=== PATIENT | female | born 1960 | race Caucasian/White ===

== ENCOUNTER 2017-08-25 14:18 | Emergency (ER) | payer OTHER ==
[~2017-08-25] VITALS: Ht 162.6 cm; Wt 84.4 kg
--- OUTSIDE RECORDS SUMMARY | 2017-08-25 14:20 | XMS REPORT | Clinical Summary ---
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 Disp. Refills Start End Date Status Date pyridostigmine (MESTINON) Take 60 mg by mouth every Active 60 mg tabletIndications: 3 (three) hours. Every 3 Myasthenia Gravis hrs po while awake. predniSONE (DELTASONE) 10 Take 10 mg by mouth Active MG tabletIndications: daily. Myasthenia Gravis, Systemic Lupus Erythematosus enoxaparin (LOVENOX) 30 Inject 60 mg Active mg/0.3 mL subcutaneously 2 (two) injectionIndications: times daily. Pulmonary Thromboembolism Prevention, Myasthenia, A-fib., Thromboembolic Pulmonary Hyperstension azaTHIOprine (IMURAN) 50 Take 50 mg by mouth 2 Active mg tabletIndications: (two) times daily. Systemic Lupus Erythematosus aspirin 81 MG EC Take 81 mg by mouth Active tabletIndications: daily. Osteoarthritis, a fib,platelet mutation famotidine (PEPCID) 20 MG Take 20 mg by mouth 2 Active tablet (two) times daily. empagliflozin (JARDIANCE) Take 10 mg by mouth 11/05/19 Active 10 mg Tab daily. 15 Active Problems Patient Care Coordination Note Weekly maintenance plasmapheresis for MG via LUE AVG. Problem Noted Date PE (pulmonary thromboembolism) ([facility]) 12/08/2000 GERD (gastroesophageal reflux disease) 07/10/1999 Myasthenia gravis ([facility]) Diabetes mellitus (HCC) Other forms of systemic lupus erythematosus (HCC) Antiphospholipid antibody syndrome (HCC) AF (paroxysmal atrial fibrillation) ([facility]) Myasthenia gravis without (acute) exacerbation (HCC) Myasthenia gravis without exacerbation ([facility]) MG (myasthenia gravis) ([facility]) Encounters Date Type Specialty Care Team Description 08/22/2017 [facility] Nephrology Epifanio Lombardi MD Arrived Encounter 08/15/2017 [facility] Nephrology Epifanio Lombardi MD Left without seen Encounter 08/11/2017 [facility] Nephrology Epifanio Lombardi MD Left without seen Encounter 08/08/2017 [facility] Nephrology Epifanio Lombardi MD Left without seen Encounter 08/01/2017 [facility] Nephrology Epifanio Lombardi MD Left without seen Encounter 07/27/2017 [facility] Nephrology Jeferson Carlton, Left without seen Encounter 07/21/2017 [facility] Nephrology Jeferson Carlton, Left without seen Encounter 07/17/2017 [facility] Nephrology Jeferson Carlton, Left without seen Encounter 07/10/2017 [facility] Nephrology Jeferson Carlton, Encounter 07/04/2017 [facility] Nephrology Jeferson Carlton, Left without seen Encounter 06/27/2017 [facility] Nephrology Jeferson Carlton, Left without seen Encounter 06/20/2017 [facility] Nephrology Jeferson Carlton, Encounter 06/13/2017 Hospital Nephrology Jeferson Carlton, Encounter 06/09/2017 Hospital Nephrology Jeferson Carlton, Left without seen Encounter 06/06/2017 Hospital Nephrology Jeferson Carlton, Encounter 05/30/2017 [facility] Nephrology Jeferson Carlton, Left without seen Encounter 05/23/2017 [facility] Nephrology Jeferson Carlton, Encounter 05/16/2017 [facility] Nephrology Jeferson Cartlon, Encounter 05/12/2017 [facility] Nephrology Jeferson Carlton, Left without seen Encounter 05/09/2017 [facility] Nephrology Jeferson Carlton, Left without seen Encounter 05/02/2017 [facility] Nephrology Jeferson Carlton, Left without seen Encounter 04/25/2017 [facility] Nephrology Jeferson Carlton, Encounter MD 04/18/2017 [facility] Nephrology Jeferson Carlton, Encounter 04/14/2017 [facility] Nephrology Jeferson Carlton, Left without seen Encounter 04/11/2017 [facility] Nephrology Jeferson Carlton, Encounter MD 04/04/2017 [facility] Nephrology Epifanio Lombardi MD Left without seen Encounter 03/28/2017 [facility] Nephrology Epifanio Lombardi MD Left without seen Encounter 03/21/2017 [facility] Nephrology Epifanio Lombardi MD Left without seen Encounter 03/14/2017 [facility] Nephrology Epifanio Lombardi MD Left without seen Encounter 03/09/2017 [facility] Nephrology Epifanio Lombardi MD Encounter 03/03/2017 [facility] Nephrology Jeferson Carlton, Left without seen Encounter 03/02/2017 Outside Orders Central Scheduling Jeferson Carlton MD 02/28/2017 [facility] Nephrology Epifanio Lombardi MD Encounter 02/21/2017 [facility] Nephrology Epifanio Lombardi MD Left without seen Encounter 02/14/2017 [facility] Nephrology Jeferson Carlton, Left without seen Encounter 02/07/2017 [facility] Nephrology Epifanio Lombardi MD Left without seen Encounter 01/31/2017 [facility] Nephrology Epifanio Lombardi MD Left without seen Encounter 01/24/2017 [facility] Nephrology Epifanio Lombardi MD Left without seen Encounter 01/17/2017 [facility] Nephrology Epifanio Lombardi MD Encounter 01/13/2017 [facility] Nephrology Jacy Leyva, Left without seen Encounter 01/09/2017 [facility] Nephrology Jacy Leyva, Encounter 01/03/2017 [facility] Nephrology Jeferson Carlton, Left without seen Encounter 12/27/2016 [facility] Nephrology Jeferson Carlton, Encounter 12/20/2016 [facility] Nephrology Jeferson Carlton, Left without seen Encounter 12/16/2016 [facility] Nephrology Jeferson Carlton, Encounter 12/09/2016 Hospital Nephrology Jeferson Carlton, Encounter 12/06/2016 Hospital Nephrology Jeferson Carlton, Left without seen Encounter 11/29/2016 Hospital Nephrology Jeferson Carlton, Encounter 11/22/2016 [facility] Nephrology Jeferson Carlton, Left without seen Encounter 11/15/2016 [facility] Nephrology Jeferson Carlton, Myasthenia gravis (HCC) Encounter 11/08/2016 [facility] Nephrology Jeferson Carlton, Systemic lupus Encounter erythematosus, unspecified SLE type, unspecified organ involvement status (HCC) 11/01/2016 Hospital Nephrology Jeferson Carlton, Myasthenia gravis (HCC) Encounter 10/25/2016 [facility] Nephrology Jeferson Carlton, Other forms of systemic Encounter lupus erythematosus (HCC) 10/18/2016 [facility] Nephrology Jeferson Carlton, Myasthenia gravis (HCC) Encounter 10/11/2016 Hospital Nephrology Jeferson Carlton, Myasthenia gravis (HCC) Encounter 10/04/2016 Hospital Nephrology Jeferson Carlton, Myasthenia (HCC ) Encounter 09/27/2016 Hospital Nephrology Jeferson Carlton, Myasthenia gravis (HCC) Encounter 09/20/2016 Hospital Nephrology Jeferson Carlton, Myasthenia gravis (HCC) Encounter 09/13/2016 [facility] Nephrology Jeferson Carlton, Lupus ( systemic lupus Encounter erythematosus) (HCC) 09/06/2016 Hospital Nephrology Jeferson Carlton, Myasthenia gravis (HCC) Encounter 08/30/2016 Hospital Nephrology Jeferson Carlton, Lupus ( systemic lupus Encounter erythematosus) ([facility]) after 08/24/2016 Immunizations Name Dates Previously Given Next Due Influenza TIV (IM) 04/10/2013 Influenza Three-TIV PF 5+ 04/25/2017 YR Social History Tobacco Use Types Packs/Day Years Used Date Never Smoker Sex Assigned at Date Recorded Not on file Last Filed Vital Signs Vital Sign Reading Time Taken Blood Pressure 130/60 08/22/2017 12:32 PM [employer] Pulse 65 08/22/2017 12:45 PM [employer] Temperature 36.7 C (98.1 F) 08/22/2017 10:32 AM [employer] Respiratory Rate 19 08/22/2017 10:32 AM [employer] Oxygen Saturation 97% 12/16/2016 3:25 PM CDT Inhaled Oxygen - - Concentration Weight 90.7 kg (200 lb) 07/27/2017 1:30 PM [employer] Height - - Body Mass Index 34.33 07/27/2017 1:30 PM [employer] Plan of Treatment Date Type Specialty Care Team Description 08/29/2017 Appointment Nephrology Epifanio Lombardi MD One [address] [address] [phone] 09/05/2017 Appointment NephEpifanio Perdue MD [address] [address] 09/08/2017 Appointment NephEpifanio Perdue MD One [address] [address] 09/12/2017 Appointment Nephrology Epifanio Lombardi MD One [address] [address] 09/19/2017 Appointment NephEpifanio Perdue MD [address] [address] 09/26/2017 Appointment NephEpifanio Perdue MD One [address] [address] 10/03/2017 Appointment Nephrology Epifanio Lombardi MD One [address] [address] [phone] Results * Plasma Exchange (08/22/2017 12:49 PM) Only the most recent of 59 results within the time period is included. Narrative Reyes Escudero RN 08/22/2017 12:49 PM Pt has plasma exchange with 3 Liters 5% Albumin via left upper arm AVG. Tolerated treatment well, no untoward s/sx of reaction noted. Seen by Dr Escamilla and Dr Richter at bedside. Discharged to home , self care. Lab Results Component Value Date WBC 6.5 07/17/2017 HGB 14.8 07/17/2017 HCT 39.3 07/17/2017 MCV 89.7 07/17/2017 PLT 202 07/17/2017 Lab Results Component Value Date GLUCOSE 362 (H) 01/19/2016 CALCIUM 9.7 01/19/2016 NA 140 02/28/2017 K 3.4 (L) 02/28/2017 CO2 16 (L) 02/28/2017 CL 110 (H) 02/28/2017 BUN 19 01/19/2016 CREATININE 0.88 01/19/2016 * Calcium, Ionized (08/22/2017 12:20 PM) Only the most recent of 60 results within the time period is included. Component Value Ref Range Calcium, Ion 1.23 1.12 - 1.27 mmol/L pH, Blood 7.30 Specimen Performing Laboratory Blood - Arm, [address] [address] Narrative Range 1.12 - 1.27 * CBC (Hemogram only) (08/22/2017 10:40 AM) Only the most recent of 21 results within the time period is included. Component Value Ref Range WBC 7.7 3.5 - 10.5 K/ L RBC 4.25 3.93 - 5.22 M/ L Hemoglobin 14.5 11.2 - 15.7 GM/DL Hematocrit 39.0 34.1 - 44.9 % MCV 91.8 79.4 - 94.8 fL MCH 34.1 (H) 25.6 - 32.2 pg MCHC 37.2 (H) 32.2 - 35.5 GM/DL RDW 12.7 11.7 - 14.4 % Platelets 226 150 - 450 K/CU MM MPV 11.7 9.4 - 12.3 fL nRBC 0 0 - 0 /100 WBC Specimen Performing Laboratory Blood - Arm, [address] [address] * Immunoglobulin A (IgA) (07/17/2017 1:56 PM) Only the most recent of 11 results within the time period is included. Component Value Ref Range IgA 109 63 - 484 mg/dL Specimen Performing Laboratory Blood [address] [address] * Immunoglobulin M (IgM) (07/17/2017 1:56 PM) Only the most recent of 12 results within the time period is included. Component Value Ref Range IgM 40 22 - 293 mg/dL Specimen Performing Laboratory Blood [address] [address] * Immunoglobulin G (IgG) (07/17/2017 1:56 PM) Only the most recent of 11 results within the time period is included. Component Value Ref Range IgG 688 540 - 1822 mg/dL Specimen Performing Laboratory Blood [address] [address] * Hemoglobin electrophoresis (06/27/2017 1:36 PM) Component Value Ref Range Hgb A Quant 97.7 % Hgb A2 Quant 2.3 1.5 - 3.0 % Hgb F Quant 0.0 <=2.0 % Hgb Other 0 Hgb C Quant 0.0 <=0.1 % Hgb S Quant 0.0 <=0.1 % Hgb E Quant 0 Specimen Performing Laboratory Blood * Electrolytes (02/28/2017 3:26 PM) Component Value Ref Range Sodium 140 136 - 145 meq/L Potassium 3.4 (L)Comment: Specimen slightly hemolyzed 3.5 - 5.1 meq/L Chloride 110 (H) 98 - 107 meq/L CO2 16 (L) 22 - 29 meq/L Specimen Performing Laboratory Blood - Arm, [address] [address] * Type and screen, automated (12/09/2016 1:22 PM) Component Value Ref Range ABO/RH AUTOMATED (BEAKER) O POSITIVE Ab Scrn NEGATIVE Specimen Performing Laboratory Blood - Arm, [address] [address] * Fibrinogen (12/09/2016 1:22 PM) Component Value Ref Range Fibrinogen 220 (L) 225 - 434 mg/dl Specimen Performing Laboratory Blood - Arm, [address] [address] after 08/24/2016
--- OUTSIDE RECORDS SUMMARY | 2017-08-25 14:20 | XMS REPORT | Clinical Summary ---
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 Disp. Refills Start End Date Status Date FREESTYLE LITE STRIPS 04/25/20 Active strip test strips 16 diclofenac (VOLTAREN) 1 % 2 05/26/20 Active gel 16 DUREZOL 0.05 % drops 0 06/10/20 Active 16 JARDIANCE 10 mg tablet 06/21/20 Active 16 LOVENOX 60 mg/0.6 mL 05/30/20 Active syringe 16 famotidine (PEPCID) 20 MG 06/17/20 Active tablet 16 lidocaine (LIDODERM) 5 % 3 06/30/20 Active 16 predniSONE (DELTASONE) 10 06/17/20 Active mg tablet 16 predniSONE (DELTASONE) 5 06/17/20 Active mg tablet 16 MESTINON 60 mg tablet 06/17/20 Active 16 sulfamethoxazole-trimetho Take 1 tablet by mouth 2 0 04/29/20 Active prim (BACTRIM DS) 800-160 (two) times a day. for 10 16 mg per tablet days Active Problems Problem Noted Date Uncontrolled type 2 diabetes mellitus 11/02/2015 Encounters Date Type Specialty Care Team Description 06/26/2017 [facility] Radiology SueKiara Ralph DO Chronic pulmonary Encounter hypertension 06/23/2017 Transcribe Access Romie Kapoor PA Chronic pulmonary Orders hypertension (Primary Dx) after 08/24/2016 Immunizations Name Dates Previously Given Next Due Influenza Trivalent 04/10/2013 Social History Tobacco Use Types Packs/Day Years Used Date Never Assessed Sex Assigned at Date Recorded Not on file Last Filed Vital Signs Not on file Plan of Treatment Health Maintenance Due Date Last Done Comments FOOT EXAM 1970 OPHTHALMOLOGY EXAM 1970 URINE MICROALBUMIN 1970 PAP SMEAR 1981 COLONOSCOPY 2010 MAMMOGRAM 2010 INFLUENZA VACCINE 02/07/2017 04/10/2013 Results * CT Chest W Contrast (06/26/2017 5:28 PM) Specimen Performing Laboratory [address] [address] Narrative EXAMINATION:CT CHEST W CONTRAST CLINICAL HISTORY: 56 years Female I27.20 Pulmonary hypertensionunspecified, I27.2 TECHNIQUE: Multiple axial images of the chest were obtained following intravenous administration of iodinated contrast. Sagittal and coronal computerized reformatted images were also obtained. CT imaging was performed with iterative reconstruction techniques and/or automated exposure control to reduce radiation dose. COMPARISON: April 26, 2002 FINDINGS: Postop sternotomy changes are present. The heart size appears within normal limits. There is no pleural fluid identified. Views of the upper abdomen which were obtained demonstrate benign-appearing calcifications along the anterior liver margin and related to splenic vessels. There is an approximately 2.8 cm density adjacent to the lateral margin of the upper pole of the left kidney whether this arises from the kidney or spleen is uncertain. It appears virtually isodense with the spleen and likely represents accessory splenic tissue although a renal mass is not excluded. This does not appear significantly changed from September 11, 2001 however and is most likely benign in any case. A 14 mm nodular area within an overall 3.7 cm fatty containing lesion is probably related to a lipid rich adenoma associated with the right adrenal gland. . No pulmonary parenchymal nodules masses or areas of focal consolidation are visualized the bones appear intact although hypertrophic changes are present IMPRESSION: 1. Probable cyst or splenic tissue in the left upper quadrant and lipids rich adenoma associated with the right adrenal. 2. Mild interstitial changes throughout the lungs with no focal nodules or masses identified. 3. The main pulmonary artery measures 3.2 cm in diameter this is borderline. [id number] Procedure Note Hm Interface, Radiology Results Incoming - 06/26/2017 5:45 PM AUDIT CONSULTANT EXAMINATION: CT CHEST W CONTRAST CLINICAL HISTORY: 56 years Female I27.20 Pulmonary hypertension unspecified, I27.2 TECHNIQUE: Multiple axial images of the chest were obtained following intravenous administration of iodinated contrast. Sagittal and coronal computerized reformatted images were also obtained. CT imaging was performed with iterative reconstruction techniques and/or automated exposure control to reduce radiation dose. COMPARISON: April 26, 2002 FINDINGS: Postop sternotomy changes are present. The heart size appears within normal limits. There is no pleural fluid identified. Views of the upper abdomen which were obtained demonstrate benign-appearing calcifications along the anterior liver margin and related to splenic vessels. There is an approximately 2.8 cm density adjacent to the lateral margin of the upper pole of the left kidney whether this arises from the kidney or spleen is uncertain. It appears virtually isodense with the spleen and likely represents accessory splenic tissue although a renal mass is not excluded. This does not appear significantly changed from September 11, 2001 however and is most likely benign in any case. A 14 mm nodular area within an overall 3.7 cm fatty containing lesion is probably related to a lipid rich adenoma associated with the right adrenal gland. . No pulmonary parenchymal nodules masses or areas of focal consolidation are visualized the bones appear intact although hypertrophic changes are present IMPRESSION: 1. Probable cyst or splenic tissue in the left upper quadrant and lipids rich adenoma associated with the right adrenal. 2. Mild interstitial changes throughout the lungs with no focal nodules or masses identified. 3. The main pulmonary artery measures 3.2 cm in diameter this is borderline. [id number] * POC creatinine (06/26/2017 5:14 PM) Component Value Ref Range POC creatinine 0.6 0.5 - 0.9 mg/dl Specimen Performing Laboratory Blood [facility] DEPARTMENT OF PATHOLOGY AND GENOMIC MEDICINE [address] [place] [address] after 08/24/2016 Insurance Payer Benefit Subscriber ID Type Phone Address Plan / Group DERIC LEOS xxxxxxxxx [facility] [place] [address]
--- OUTSIDE RECORDS SUMMARY | 2017-08-25 14:21 | XMS REPORT ---
Author Author [facility] Address Unknown Phone Unavailable Care Team Providers [employer] Chief Name Role Phone ZACHARY JYOTI Unavailable Unavailable [place]AN Unavailable Unavailable KELVIN JUDD Unavailable Unavailable Problems This patient has no known problems. Allergies, Adverse Reactions, Alerts This patient has no known allergies or adverse reactions. Medications This patient has no known medications. Results Test Description Test Time Test Comments Text Results Atomic Results Result Comments CALCIUM, IONIZED 2017-08-22 12:44:00 CALCIUM IONIZED (BEAKER) (test coqt=924) 1.23 mmol/L 1.12-1.27 PH, BLOOD (BEAKER) (test ehlf=9635) 7.30 Range 1.12 - 1.27CBC (HEMOGRAM ONLY)2017-08-22 12:11:00* Test Item Value Reference Range Comments WHITE BLOOD CELL COUNT (BEAKER) (test orrq=262) 7.7 K/ L 3.5-10.5 RED BLOOD CELL COUNT (BEAKER) (test ynun=698) 4.25 M/ L 3.93-5.22 HEMOGLOBIN (BEAKER) (test hmhi=348) 14.5 GM/DL 11.2-15.7 HEMATOCRIT (BEAKER) (test yhkc=731) 39.0 % 34.1-44.9 MEAN CORPUSCULAR VOLUME (BEAKER) (test siji=467) 91.8 fL 79.4-94.8 MEAN CORPUSCULAR HEMOGLOBIN (BEAKER) (test oepi=927) 34.1 pg 25.6-32.2 MEAN CORPUSCULAR HEMOGLOBIN CONC (BEAKER) (test skdn=541) 37.2 GM/DL 32.2- 35.5 RED CELL DISTRIBUTION WIDTH (BEAKER) (test ihoi=186) 12.7 % 11.7-14.4 PLATELET COUNT (BEAKER) (test imve=460) 226 K/CU MM 150-450 MEAN PLATELET VOLUME (BEAKER) (test kprs=131) 11.7 fL 9.4-12.3 NUCLEATED RED BLOOD CELLS (BEAKER) (test tbzz=677) 0 /100 WBC 0-0 CALCIUM, [id number] 15:06:00* Test Item Value Reference Range Comments CALCIUM IONIZED (BEAKER) (test tfxz=587) 1.06 mmol/L 1.12-1.27 PH, BLOOD (BEAKER) (test cchi=2653) 7.36 Range 1.12 - 1.27CALCIUM, [id number] 15:04:00* Test Item Value Reference Range Comments CALCIUM IONIZED (BEAKER) (test hvxt=845) 1.05 mmol/L 1.12-1.27 PH, BLOOD (BEAKER) (test dlqm=4884) 7.36 Range 1.12 - 1.27CALCIUM, [id number] 16:31:00* Test Item Value Reference Range Comments CALCIUM IONIZED (BEAKER) (test aetf=294) 1.21 mmol/L 1.12-1.27 PH, BLOOD (BEAKER) (test lvkx=3885) 7.36 Range 1.12 - 1.27CALCIUM, [id number] 15:52:00* Test Item Value Reference Range Comments CALCIUM IONIZED (BEAKER) (test uevk=817) 1.20 mmol/L 1.12-1.27 PH, BLOOD (BEAKER) (test eufs=2217) 7.33 Range 1.12 - 1.27CALCIUM, [id number] 15:11:00* Test Item Value Reference Range Comments CALCIUM IONIZED (BEAKER) (test gkaw=948) 1.17 mmol/L 1.12-1.27 PH, BLOOD (BEAKER) (test uibj=5213) 7.36 Range 1.12 - 1.27CALCIUM, [id number] 15:14:00* Test Item Value Reference Range Comments CALCIUM IONIZED (BEAKER) (test dpyx=366) 0.96 mmol/L 1.12-1.27 PH, BLOOD (BEAKER) (test ccll=5956) 7.36 Range 1.12 - 1.27CALCIUM, [id number] 15:49:00* Test Item Value Reference Range Comments CALCIUM IONIZED (BEAKER) (test ayxx=336) 1.18 mmol/L 1.12-1.27 PH, BLOOD (BEAKER) (test zwos=2212) 7.34 Range 1.12 - 1.27IMMUNOGLOBULIN G (IGG)2017-07-17 14:47:00* Test Item Value Reference Range Comments IMMUNOGLOBULIN G (IGG) (BEAKER) (test qbdd=987) 688 mg/dL 540-1822 IMMUNOGLOBULIN M (IGM)2017-07-17 14:47:00* Test Item Value Reference Range Comments IMMUNOGLOBULIN M (IGM) (BEAKER) (test tzoj=581) 40 mg/dL 22-293 IMMUNOGLOBULIN A (IGA)2017-07-17 14:47:00* Test Item Value Reference Range Comments IMMUNOGLOBULIN A (IGA) (BEAKER) (test wtzs=675) 109 mg/dL 63-484 CBC (HEMOGRAM ONLY)2017-07-17 14:28:00* Test Item Value Reference Range Comments WHITE BLOOD CELL COUNT (BEAKER) (test thml=137) 6.5 K/ L 3.5-10.5 RED BLOOD CELL COUNT (BEAKER) (test cwhd=030) 4.38 M/ L 3.93-5.22 HEMOGLOBIN (BEAKER) (test gtyn=873) 14.8 GM/DL 11.2-15.7 HEMATOCRIT (BEAKER) (test gcqr=968) 39.3 % 34.1-44.9 MEAN CORPUSCULAR VOLUME (BEAKER) (test pord=219) 89.7 fL 79.4-94.8 MEAN CORPUSCULAR HEMOGLOBIN (BEAKER) (test gkeq=656) 33.8 pg 25.6-32.2 MEAN CORPUSCULAR HEMOGLOBIN CONC (BEAKER) (test dvwh=884) 37.7 GM/DL 32.2- 35.5 RED CELL DISTRIBUTION WIDTH (BEAKER) (test xcfk=382) 12.5 % 11.7-14.4 PLATELET COUNT (BEAKER) (test hskg=574) 202 K/CU MM 150-450 MEAN PLATELET VOLUME (BEAKER) (test nltg=844) 11.8 fL 9.4-12.3 NUCLEATED RED BLOOD CELLS (BEAKER) (test zpxw=141) 0 /100 WBC 0-0 CALCIUM, [id number] 15:52:00* Test Item Value Reference Range Comments CALCIUM IONIZED (BEAKER) (test ivxj=803) 1.18 mmol/L 1.12-1.27 PH, BLOOD (BEAKER) (test pxla=2166) 7.33 Range 1.12 - 1.27CALCIUM, [id number] 15:43:00* Test Item Value Reference Range Comments CALCIUM IONIZED (BEAKER) (test dxed=351) 0.60 mmol/L 1.12-1.27 Result double checked PH, BLOOD (BEAKER) (test kbgz=4451) 7.36 Range 1.12 - 1.27CBC (HEMOGRAM ONLY)2017-07-04 15:02:00* Test Item Value Reference Range Comments WHITE BLOOD CELL COUNT (BEAKER) (test rtez=303) 6.0 K/ L 3.5-10.5 RED BLOOD CELL COUNT (BEAKER) (test pdxv=508) 4.22 M/ L 3.93-5.22 HEMOGLOBIN (BEAKER) (test iuzt=330) 13.4 GM/DL 11.2-15.7 HEMATOCRIT (BEAKER) (test glnq=273) 38.8 % 34.1-44.9 MEAN CORPUSCULAR VOLUME (BEAKER) (test gbbz=568) 91.9 fL 79.4-94.8 MEAN CORPUSCULAR HEMOGLOBIN (BEAKER) (test sfue=242) 31.8 pg 25.6-32.2 MEAN CORPUSCULAR HEMOGLOBIN CONC (BEAKER) (test lhey=026) 34.5 GM/DL 32.2- 35.5 RED CELL DISTRIBUTION WIDTH (BEAKER) (test auyj=385) 12.4 % 11.7-14.4 PLATELET COUNT (BEAKER) (test cmbg=166) 166 K/CU MM 150-450 MEAN PLATELET VOLUME (BEAKER) (test vnyo=758) 10.8 fL 9.4-12.3 NUCLEATED RED BLOOD CELLS (BEAKER) (test pmjd=306) 0 /100 WBC 0-0 CALCIUM, [id number] 16:37:00* Test Item Value Reference Range Comments CALCIUM IONIZED (BEAKER) (test rngf=227) 1.13 mmol/L 1.12-1.27 PH, BLOOD (BEAKER) (test uysy=0871) 7.28 IMMUNOGLOBULIN A (IGA)2017-06-27 15:20:00* Test Item Value Reference Range Comments IMMUNOGLOBULIN A (IGA) (BEAKER) (test jpfa=306) 108 mg/dL 63-484 IMMUNOGLOBULIN G (IGG)2017-06-27 15:19:00* Test Item Value Reference Range Comments IMMUNOGLOBULIN G (IGG) (BEAKER) (test wrwu=022) 647 mg/dL 540-1822 IMMUNOGLOBULIN M (IGM)2017-06-27 15:19:00* Test Item Value Reference Range Comments IMMUNOGLOBULIN M (IGM) (BEAKER) (test scum=287) 38 mg/dL 22-293 CBC (HEMOGRAM ONLY)2017-06-27 14:40:00* Test Item Value Reference Range Comments WHITE BLOOD CELL COUNT (BEAKER) (test nmnr=984) 6.7 K/ L 3.5-10.5 RED BLOOD CELL COUNT (BEAKER) (test xtlu=623) 3.91 M/ L 3.93-5.22 HEMOGLOBIN (BEAKER) (test dsje=255) 12.5 GM/DL 11.2-15.7 HEMATOCRIT (BEAKER) (test brnm=928) 37.8 % 34.1-44.9 MEAN CORPUSCULAR VOLUME (BEAKER) (test stut=561) 96.7 fL 79.4-94.8 MEAN CORPUSCULAR HEMOGLOBIN (BEAKER) (test ncko=774) 32.0 pg 25.6-32.2 MEAN CORPUSCULAR HEMOGLOBIN CONC (BEAKER) (test onjs=792) 33.1 GM/DL 32.2- 35.5 RED CELL DISTRIBUTION WIDTH (BEAKER) (test odsy=459) 12.6 % 11.7-14.4 PLATELET COUNT (BEAKER) (test zhtu=382) 140 K/CU MM 150-450 MEAN PLATELET VOLUME (BEAKER) (test rmzp=767) 11.4 fL 9.4-12.3 NUCLEATED RED BLOOD CELLS (BEAKER) (test qwfr=955) 0 /100 WBC 0-0 CALCIUM, [id number] 15:28:00* Test Item Value Reference Range Comments CALCIUM IONIZED (BEAKER) (test ultu=988) 1.16 mmol/L 1.12-1.27 PH, BLOOD (BEAKER) (test whgw=0486) 7.35 Range 1.12 - 1.27CALCIUM, [id number] 15:01:00* Test Item Value Reference Range Comments CALCIUM IONIZED (BEAKER) (test iret=790) 1.19 mmol/L 1.12-1.27 PH, BLOOD (BEAKER) (test wxcm=2520) 7.35 Range 1.12 - 1.27CALCIUM, [id number] 15:20:00* Test Item Value Reference Range Comments CALCIUM IONIZED (BEAKER) (test eymm=710) 1.21 mmol/L 1.12-1.27 PH, BLOOD (BEAKER) (test ycxk=2300) 7.31 Range 1.12 - 1.27CBC (HEMOGRAM ONLY)2017-06-09 12:46:00* Test Item Value Reference Range Comments WHITE BLOOD CELL COUNT (BEAKER) (test yylh=041) 6.5 K/ L 3.5-10.5 RED BLOOD CELL COUNT (BEAKER) (test ooyn=677) 4.44 M/ L 3.93-5.22 HEMOGLOBIN (BEAKER) (test szfy=175) 13.7 GM/DL 11.2-15.7 HEMATOCRIT (BEAKER) (test yssm=019) 40.3 % 34.1-44.9 MEAN CORPUSCULAR VOLUME (BEAKER) (test deqc=076) 90.8 fL 79.4-94.8 MEAN CORPUSCULAR HEMOGLOBIN (BEAKER) (test iofv=883) 30.9 pg 25.6-32.2 MEAN CORPUSCULAR HEMOGLOBIN CONC (BEAKER) (test hwot=153) 34.0 GM/DL 32.2- 35.5 RED CELL DISTRIBUTION WIDTH (BEAKER) (test ohdk=878) 12.2 % 11.7-14.4 PLATELET COUNT (BEAKER) (test vtwt=095) 179 K/CU MM 150-450 MEAN PLATELET VOLUME (BEAKER) (test gnhd=787) 11.1 fL 9.4-12.3 NUCLEATED RED BLOOD CELLS (BEAKER) (test cbzz=844) 0 /100 WBC 0-0 CALCIUM, [id number] 15:26:00* Test Item Value Reference Range Comments CALCIUM IONIZED (BEAKER) (test wlqi=281) 1.12 mmol/L 1.12-1.27 PH, BLOOD (BEAKER) (test xwpg=3645) 7.38 Range 1.12 - 1.27CALCIUM, [id number] 14:21:00* Test Item Value Reference Range Comments CALCIUM IONIZED (BEAKER) (test hfxn=928) 1.16 mmol/L 1.12-1.27 PH, BLOOD (BEAKER) (test jhbq=3707) 7.38 Range 1.12 - 1.27CALCIUM, [id number] 14:51:00* Test Item Value Reference Range Comments CALCIUM IONIZED (BEAKER) (test zcju=569) 1.15 mmol/L 1.12-1.27 PH, BLOOD (BEAKER) (test lzry=5269) 7.36 Range 1.12 - 1.27CALCIUM, [id number] 15:27:00* Test Item Value Reference Range Comments CALCIUM IONIZED (BEAKER) (test ctro=992) 1.19 mmol/L 1.12-1.27 PH, BLOOD (BEAKER) (test yxdr=5430) 7.37 Range 1.12 - 1.27CALCIUM, [id number] 15:13:00* Test Item Value Reference Range Comments CALCIUM IONIZED (BEAKER) (test zqer=191) 1.17 mmol/L 1.12-1.27 PH, BLOOD (BEAKER) (test ymvc=4395) 7.38 Range 1.12 - 1.27CALCIUM, [id number] 14:27:00* Test Item Value Reference Range Comments CALCIUM IONIZED (BEAKER) (test hqpr=080) 1.17 mmol/L 1.12-1.27 PH, BLOOD (BEAKER) (test aghr=9434) 7.36 Range 1.12 - 1.27IMMUNOGLOBULIN G (IGG)2017-05-09 13:39:00* Test Item Value Reference Range Comments IMMUNOGLOBULIN G (IGG) (BEAKER) (test ctmh=060) 696 mg/dL 540-1822 IMMUNOGLOBULIN M (IGM)2017-05-09 13:39:00* Test Item Value Reference Range Comments IMMUNOGLOBULIN M (IGM) (BEAKER) (test ezqs=220) 34 mg/dL 22-293 IMMUNOGLOBULIN A (IGA)2017-05-09 13:39:00* Test Item Value Reference Range Comments IMMUNOGLOBULIN A (IGA) (BEAKER) (test ahgn=610) 112 mg/dL 63-484 CBC (HEMOGRAM ONLY)2017-05-09 13:13:00* Test Item Value Reference Range Comments WHITE BLOOD CELL COUNT (BEAKER) (test wtib=815) 6.7 K/ L 3.5-10.5 RED BLOOD CELL COUNT (BEAKER) (test meca=305) 4.56 M/ L 3.93-5.22 HEMOGLOBIN (BEAKER) (test mzxb=927) 14.3 GM/DL 11.2-15.7 HEMATOCRIT (BEAKER) (test nnuu=670) 41.5 % 34.1-44.9 MEAN CORPUSCULAR VOLUME (BEAKER) (test rdxx=633) 91.0 fL 79.4-94.8 MEAN CORPUSCULAR HEMOGLOBIN (BEAKER) (test xsmf=985) 31.4 pg 25.6-32.2 MEAN CORPUSCULAR HEMOGLOBIN CONC (BEAKER) (test besl=850) 34.5 GM/DL 32.2- 35.5 RED CELL DISTRIBUTION WIDTH (BEAKER) (test uvco=677) 12.3 % 11.7-14.4 PLATELET COUNT (BEAKER) (test lgtr=445) 199 K/CU MM 150-450 MEAN PLATELET VOLUME (BEAKER) (test xuni=657) 10.9 fL 9.4-12.3 NUCLEATED RED BLOOD CELLS (BEAKER) (test irkn=436) 0 /100 WBC 0-0 CALCIUM, [id number] 15:30:00* Test Item Value Reference Range Comments CALCIUM IONIZED (BEAKER) (test tdzm=403) 1.18 mmol/L 1.12-1.27 PH, BLOOD (BEAKER) (test oedu=1196) 7.37 Range 1.12 - 1.27CALCIUM, [id number] 15:18:00* Test Item Value Reference Range Comments CALCIUM IONIZED (BEAKER) (test rrbr=670) 1.21 mmol/L 1.12-1.27 PH, BLOOD (BEAKER) (test ihky=6877) 7.35 Range 1.12 - 1.27CALCIUM, [id number] 16:23:00* Test Item Value Reference Range Comments CALCIUM IONIZED (BEAKER) (test btgd=366) 1.20 mmol/L 1.12-1.27 PH, BLOOD (BEAKER) (test qtui=0760) 7.35 Range 1.12 - 1.27CBC (HEMOGRAM ONLY)2017-04-14 15:16:00* Test Item Value Reference Range Comments WHITE BLOOD CELL COUNT (BEAKER) (test qbpt=577) 6.1 K/ L 3.5-10.5 RED BLOOD CELL COUNT (BEAKER) (test sfql=426) 4.26 M/ L 3.93-5.22 HEMOGLOBIN (BEAKER) (test nikj=623) 13.3 GM/DL 11.2-15.7 HEMATOCRIT (BEAKER) (test cykh=677) 39.2 % 34.1-44.9 MEAN CORPUSCULAR VOLUME (BEAKER) (test xviv=044) 92.0 fL 79.4-94.8 MEAN CORPUSCULAR HEMOGLOBIN (BEAKER) (test yqvd=411) 31.2 pg 25.6-32.2 MEAN CORPUSCULAR HEMOGLOBIN CONC (BEAKER) (test ifwg=537) 33.9 GM/DL 32.2- 35.5 RED CELL DISTRIBUTION WIDTH (BEAKER) (test bdox=874) 12.5 % 11.7-14.4 PLATELET COUNT (BEAKER) (test tbge=728) 190 K/CU MM 150-450 MEAN PLATELET VOLUME (BEAKER) (test hwdd=452) 12.3 fL 9.4-12.3 NUCLEATED RED BLOOD CELLS (BEAKER) (test mxpl=090) 0 /100 WBC 0-0 CALCIUM, [id number] 15:03:00* Test Item Value Reference Range Comments CALCIUM IONIZED (BEAKER) (test bvym=427) 1.20 mmol/L 1.12-1.27 PH, BLOOD (BEAKER) (test szen=0130) 7.37 Range 1.12 - 1.27CALCIUM, [id number] 15:26:00* Test Item Value Reference Range Comments CALCIUM IONIZED (BEAKER) (test prsd=273) 1.18 mmol/L 1.12-1.27 PH, BLOOD (BEAKER) (test orsw=7974) 7.32 Range 1.12 - 1.27CALCIUM, [id number] 15:01:00* Test Item Value Reference Range Comments CALCIUM IONIZED (BEAKER) (test vbyu=279) 1.19 mmol/L 1.12-1.27 PH, BLOOD (BEAKER) (test mgjd=5340) 7.38 Range 1.12 - 1.27IMMUNOGLOBULIN M (IGM)2017-03-28 15:03:00* Test Item Value Reference Range Comments IMMUNOGLOBULIN M (IGM) (BEAKER) (test gwpu=708) 36 mg/dL 22-293 CALCIUM, [id number] 15:02:00* Test Item Value Reference Range Comments CALCIUM IONIZED (BEAKER) (test mszg=457) 1.26 mmol/L 1.12-1.27 PH, BLOOD (BEAKER) (test sunb=6184) 7.36 Range 1.12 - 1.27CALCIUM, [id number] 15:34:00* Test Item Value Reference Range Comments CALCIUM IONIZED (BEAKER) (test qnvo=493) 1.20 mmol/L 1.12-1.27 PH, BLOOD (BEAKER) (test ctci=8921) 7.35 Range 1.12 - 1.27CBC (HEMOGRAM ONLY)2017-03-21 15:01:00* Test Item Value Reference Range Comments WHITE BLOOD CELL COUNT (BEAKER) (test vyvh=084) 6.1 K/ L 3.5-10.5 RED BLOOD CELL COUNT (BEAKER) (test hgch=853) 4.18 M/ L 3.93-5.22 HEMOGLOBIN (BEAKER) (test dpej=147) 14.6 GM/DL 11.2-15.7 HEMATOCRIT (BEAKER) (test qvic=350) 38.4 % 34.1-44.9 MEAN CORPUSCULAR VOLUME (BEAKER) (test lkjj=878) 91.9 fL 79.4-94.8 MEAN CORPUSCULAR HEMOGLOBIN (BEAKER) (test gpxf=010) 34.9 pg 25.6-32.2 MEAN CORPUSCULAR HEMOGLOBIN CONC (BEAKER) (test dold=514) 38.0 GM/DL 32.2- 35.5 RED CELL DISTRIBUTION WIDTH (BEAKER) (test icdr=073) 13.1 % 11.7-14.4 PLATELET COUNT (BEAKER) (test dlux=213) 335 K/CU MM 150-450 MEAN PLATELET VOLUME (BEAKER) (test otyy=410) 12.1 fL 9.4-12.3 NUCLEATED RED BLOOD CELLS (BEAKER) (test ihnd=171) 0 /100 WBC 0-0 CALCIUM, [id number] 17:57:00* Test Item Value Reference Range Comments CALCIUM IONIZED (BEAKER) (test lebk=446) 1.21 mmol/L 1.12-1.27 PH, BLOOD (BEAKER) (test dzwi=6910) 7.36 Range 1.12 - 1.27IMMUNOGLOBULIN G (IGG)2017-03-14 17:23:00* Test Item Value Reference Range Comments IMMUNOGLOBULIN G (IGG) (BEAKER) (test hhgu=340) 536 mg/dL 540-1822 IMMUNOGLOBULIN M (IGM)2017-03-14 17:23:00* Test Item Value Reference Range Comments IMMUNOGLOBULIN M (IGM) (BEAKER) (test tdhk=350) 28 mg/dL 22-293 IMMUNOGLOBULIN A (IGA)2017-03-14 17:23:00* Test Item Value Reference Range Comments IMMUNOGLOBULIN A (IGA) (BEAKER) (test ynpz=000) 93 mg/dL 63-484 CBC (HEMOGRAM ONLY)2017-03-14 16:53:00* Test Item Value Reference Range Comments WHITE BLOOD CELL COUNT (BEAKER) (test tnpc=906) 6.1 K/ L 3.5-10.5 RED BLOOD CELL COUNT (BEAKER) (test kumb=005) 4.05 M/ L 3.93-5.22 HEMOGLOBIN (BEAKER) (test cdyh=864) 13.8 GM/DL 11.2-15.7 HEMATOCRIT (BEAKER) (test ojcj=688) 37.4 % 34.1-44.9 MEAN CORPUSCULAR VOLUME (BEAKER) (test cwwb=790) 92.3 fL 79.4-94.8 MEAN CORPUSCULAR HEMOGLOBIN (BEAKER) (test erwn=267) 34.1 pg 25.6-32.2 MEAN CORPUSCULAR HEMOGLOBIN CONC (BEAKER) (test fppp=719) 36.9 GM/DL 32.2- 35.5 RED CELL DISTRIBUTION WIDTH (BEAKER) (test uxko=602) 12.6 % 11.7-14.4 PLATELET COUNT (BEAKER) (test tenu=103) 187 K/CU MM 150-450 MEAN PLATELET VOLUME (BEAKER) (test ybch=866) 11.8 fL 9.4-12.3 NUCLEATED RED BLOOD CELLS (BEAKER) (test ucmc=806) 0 /100 WBC 0-0 CALCIUM, [id number] 15:28:00* Test Item Value Reference Range Comments CALCIUM IONIZED (BEAKER) (test damd=392) 1.17 mmol/L 1.12-1.27 PH, BLOOD (BEAKER) (test xdnt=0065) 7.37 Range 1.12 - 1.27CALCIUM, [id number] 11:04:00* Test Item Value Reference Range Comments CALCIUM IONIZED (BEAKER) (test fbre=615) 1.21 mmol/L 1.12-1.27 PH, BLOOD (BEAKER) (test dvcf=3277) 7.34 Range 1.12 - [id number] 15:57:00* Test Item Value Reference Range Comments SODIUM (BEAKER) (test jcqv=379) 140 meq/L 136-145 POTASSIUM (BEAKER) (test hjck=795) 3.4 meq/L 3.5-5.1 Specimen slightly hemolyzed CHLORIDE (BEAKER) (test rwjo=668) 110 meq/L 98-107 CO2 (BEAKER) (test mdcz=520) 16 meq/L 22-29 CBC (HEMOGRAM ONLY)2017-02-28 15:41:00* Test Item Value Reference Range Comments WHITE BLOOD CELL COUNT (BEAKER) (test bvma=470) 7.3 K/ L 3.5-10.5 RED BLOOD CELL COUNT (BEAKER) (test vubr=979) 4.67 M/ L 3.93-5.22 HEMOGLOBIN (BEAKER) (test vmrx=842) 14.4 GM/DL 11.2-15.7 HEMATOCRIT (BEAKER) (test ntib=328) 41.9 % 34.1-44.9 MEAN CORPUSCULAR VOLUME (BEAKER) (test vjen=472) 89.7 fL 79.4-94.8 MEAN CORPUSCULAR HEMOGLOBIN (BEAKER) (test cufc=837) 30.8 pg 25.6-32.2 MEAN CORPUSCULAR HEMOGLOBIN CONC (BEAKER) (test rgse=514) 34.4 GM/DL 32.2- 35.5 RED CELL DISTRIBUTION WIDTH (BEAKER) (test dxcy=663) 12.6 % 11.7-14.4 PLATELET COUNT (BEAKER) (test yvym=624) 169 K/CU MM 150-450 MEAN PLATELET VOLUME (BEAKER) (test myrm=105) 11.1 fL 9.4-12.3 NUCLEATED RED BLOOD CELLS (BEAKER) (test vwyc=200) 0 /100 WBC 0-0 CALCIUM, [id number] 15:36:00* Test Item Value Reference Range Comments CALCIUM IONIZED (BEAKER) (test vryq=520) 1.21 mmol/L 1.12-1.27 PH, BLOOD (BEAKER) (test bbci=1131) 7.37 Range 1.12 - 1.27IMMUNOGLOBULIN G (IGG)2017-02-28 15:06:00* Test Item Value Reference Range Comments IMMUNOGLOBULIN G (IGG) (BEAKER) (test bjpr=447) 678 mg/dL 540-1822 IMMUNOGLOBULIN M (IGM)2017-02-28 15:06:00* Test Item Value Reference Range Comments IMMUNOGLOBULIN M (IGM) (BEAKER) (test mksv=238) 29 mg/dL 22-293 IMMUNOGLOBULIN A (IGA)2017-02-28 15:06:00* Test Item Value Reference Range Comments IMMUNOGLOBULIN A (IGA) (BEAKER) (test tkss=007) 110 mg/dL 63-484 CALCIUM, [id number] 15:09:00* Test Item Value Reference Range Comments CALCIUM IONIZED (BEAKER) (test dwbe=209) 1.19 mmol/L 1.12-1.27 PH, BLOOD (BEAKER) (test tgxq=3366) 7.37 Range 1.12 - 1.27CBC (HEMOGRAM ONLY)2017-02-21 13:53:00* Test Item Value Reference Range Comments WHITE BLOOD CELL COUNT (BEAKER) (test pbwh=604) 5.2 K/ L 3.5-10.5 RED BLOOD CELL COUNT (BEAKER) (test jvpp=210) 4.43 M/ L 3.93-5.22 HEMOGLOBIN (BEAKER) (test sfye=501) 14.2 GM/DL 11.2-15.7 HEMATOCRIT (BEAKER) (test efon=260) 39.7 % 34.1-44.9 MEAN CORPUSCULAR VOLUME (BEAKER) (test dbpo=480) 89.6 fL 79.4-94.8 MEAN CORPUSCULAR HEMOGLOBIN (BEAKER) (test wnga=077) 32.1 pg 25.6-32.2 MEAN CORPUSCULAR HEMOGLOBIN CONC (BEAKER) (test hwqh=911) 35.8 GM/DL 32.2- 35.5 RED CELL DISTRIBUTION WIDTH (BEAKER) (test raep=910) 12.5 % 11.7-14.4 PLATELET COUNT (BEAKER) (test joja=313) 200 K/CU MM 150-450 MEAN PLATELET VOLUME (BEAKER) (test iqge=825) 11.5 fL 9.4-12.3 NUCLEATED RED BLOOD CELLS (BEAKER) (test nrhr=326) 0 /100 WBC 0-0 CALCIUM, [id number] 16:07:00* Test Item Value Reference Range Comments CALCIUM IONIZED (BEAKER) (test iysf=042) 1.19 mmol/L 1.12-1.27 PH, BLOOD (BEAKER) (test nfvx=7655) 7.36 Range 1.12 - 1.27CALCIUM, [id number] 15:14:00* Test Item Value Reference Range Comments CALCIUM IONIZED (BEAKER) (test dzyh=055) 1.17 mmol/L 1.12-1.27 PH, BLOOD (BEAKER) (test iryx=8787) 7.37 Range 1.12 - 1.27CBC (HEMOGRAM ONLY)2017-02-07 15:14:00* Test Item Value Reference Range Comments WHITE BLOOD CELL COUNT (BEAKER) (test mfrw=795) 7.1 K/ L 3.5-10.5 RED BLOOD CELL COUNT (BEAKER) (test frgv=512) 4.24 M/ L 3.93-5.22 HEMOGLOBIN (BEAKER) (test sycm=231) 15.2 GM/DL 11.2-15.7 HEMATOCRIT (BEAKER) (test mjyj=004) 37.9 % 34.1-44.9 MEAN CORPUSCULAR VOLUME (BEAKER) (test hmyy=033) 89.4 fL 79.4-94.8 MEAN CORPUSCULAR HEMOGLOBIN (BEAKER) (test egqi=755) 35.8 pg 25.6-32.2 MEAN CORPUSCULAR HEMOGLOBIN CONC (BEAKER) (test ydrm=458) 40.1 GM/DL 32.2- 35.5 RED CELL DISTRIBUTION WIDTH (BEAKER) (test jaih=389) 12.8 % 11.7-14.4 PLATELET COUNT (BEAKER) (test uvsz=287) 202 K/CU MM 150-450 MEAN PLATELET VOLUME (BEAKER) (test hwbu=842) 12.3 fL 9.4-12.3 NUCLEATED RED BLOOD CELLS (BEAKER) (test qchj=654) 0 /100 WBC 0-0 CALCIUM, [id number] 15:33:00* Test Item Value Reference Range Comments CALCIUM IONIZED (BEAKER) (test bbqz=259) 1.22 mmol/L 1.12-1.27 PH, BLOOD (BEAKER) (test nlgx=7379) 7.35 Range 1.12 - 1.27CALCIUM, [id number] 15:32:00* Test Item Value Reference Range Comments CALCIUM IONIZED (BEAKER) (test tjsq=084) 1.21 mmol/L 1.12-1.27 PH, BLOOD (BEAKER) (test vcgc=6706) 7.34 Range 1.12 - 1.27IMMUNOGLOBULIN G (IGG)2017-01-24 13:48:00* Test Item Value Reference Range Comments IMMUNOGLOBULIN G (IGG) (BEAKER) (test dwcp=988) 612 mg/dL 540-1822 IMMUNOGLOBULIN M (IGM)2017-01-24 13:48:00* Test Item Value Reference Range Comments IMMUNOGLOBULIN M (IGM) (BEAKER) (test btgb=111) 31 mg/dL 22-293 IMMUNOGLOBULIN A (IGA)2017-01-24 13:48:00* Test Item Value Reference Range Comments IMMUNOGLOBULIN A (IGA) (BEAKER) (test nejx=864) 103 mg/dL 63-484 CBC (HEMOGRAM ONLY)2017-01-24 13:34:00* Test Item Value Reference Range Comments WHITE BLOOD CELL COUNT (BEAKER) (test oter=999) 6.4 K/ L 4.0-10.0 RED BLOOD CELL COUNT (BEAKER) (test oejd=043) 4.15 M/ L 4.00-5.00 HEMOGLOBIN (BEAKER) (test woit=043) 14.3 GM/DL 12.0-15.0 HEMATOCRIT (BEAKER) (test qvpt=077) 37.4 % 36.0-45.0 MEAN CORPUSCULAR VOLUME (BEAKER) (test rkfm=773) 90.1 fL 82.0-99.0 MEAN CORPUSCULAR HEMOGLOBIN (BEAKER) (test gbuu=385) 34.5 pg 27.0-33.0 MEAN CORPUSCULAR HEMOGLOBIN CONC (BEAKER) (test tbmz=106) 38.3 GM/DL 32.0- 36.0 RED CELL DISTRIBUTION WIDTH (BEAKER) (test wxfy=987) 11.7 % 10.3-14.2 PLATELET COUNT (BEAKER) (test nega=071) 184 K/CU MM 150-430 MEAN PLATELET VOLUME (BEAKER) (test bhyk=484) 8.3 fL 6.5-10.5 NUCLEATED RED BLOOD CELLS (BEAKER) (test lcdf=516) 0 /100 WBC 0-0 0.00CALCIUM, [id number] 15:55:00* Test Item Value Reference Range Comments CALCIUM IONIZED (BEAKER) (test otws=746) 1.04 mmol/L 1.12-1.27 PH, BLOOD (BEAKER) (test emvb=1191) 7.38 Range 1.12 - 1.27CALCIUM, [id number] 15:16:00* Test Item Value Reference Range Comments CALCIUM IONIZED (BEAKER) (test dpep=482) 1.17 mmol/L 1.12-1.27 PH, BLOOD (BEAKER) (test ouig=3256) 7.34 Range 1.12 - 1.27CALCIUM, [id number] 15:02:00* Test Item Value Reference Range Comments CALCIUM IONIZED (BEAKER) (test xpsg=028) 1.17 mmol/L 1.12-1.27 PH, BLOOD (BEAKER) (test qsen=1851) 7.33 Range 1.12 - 1.27CBC (HEMOGRAM ONLY)2017-01-09 14:49:00* Test Item Value Reference Range Comments WHITE BLOOD CELL COUNT (BEAKER) (test ivft=958) 6.0 K/ L 4.0-10.0 RED BLOOD CELL COUNT (BEAKER) (test njvp=607) 4.52 M/ L 4.00-5.00 HEMOGLOBIN (BEAKER) (test slab=001) 14.7 GM/DL 12.0-15.0 HEMATOCRIT (BEAKER) (test tobd=943) 40.7 % 36.0-45.0 MEAN CORPUSCULAR VOLUME (BEAKER) (test rnta=329) 90.1 fL 82.0-99.0 MEAN CORPUSCULAR HEMOGLOBIN (BEAKER) (test awsy=218) 32.5 pg 27.0-33.0 MEAN CORPUSCULAR HEMOGLOBIN CONC (BEAKER) (test pqxk=708) 36.1 GM/DL 32.0- 36.0 RED CELL DISTRIBUTION WIDTH (BEAKER) (test fyfc=473) 13.3 % 10.3-14.2 PLATELET COUNT (BEAKER) (test ljph=721) 167 K/CU MM 150-430 MEAN PLATELET VOLUME (BEAKER) (test dmsl=832) 8.8 fL 6.5-10.5 NUCLEATED RED BLOOD CELLS (BEAKER) (test siwr=972) 0 /100 WBC 0-0 0.00IMMUNOGLOBULIN G (IGG)2017-01-09 14:03:00* Test Item Value Reference Range Comments IMMUNOGLOBULIN G (IGG) (BEAKER) (test tqdr=192) 688 mg/dL 540-1822 IMMUNOGLOBULIN M (IGM)2017-01-09 14:03:00* Test Item Value Reference Range Comments IMMUNOGLOBULIN M (IGM) (BEAKER) (test hinx=850) 40 mg/dL 22-293 IMMUNOGLOBULIN A (IGA)2017-01-09 14:03:00* Test Item Value Reference Range Comments IMMUNOGLOBULIN A (IGA) (BEAKER) (test jzxe=968) 114 mg/dL 63-484 CALCIUM, [id number] 14:56:00* Test Item Value Reference Range Comments CALCIUM IONIZED (BEAKER) (test jnpo=809) 1.16 mmol/L 1.12-1.27 PH, BLOOD (BEAKER) (test bwua=6404) 7.36 Range 1.12 - 1.27CALCIUM, [id number] 15:28:00* Test Item Value Reference Range Comments CALCIUM IONIZED (BEAKER) (test euqo=766) 0.98 mmol/L 1.12-1.27 PH, BLOOD (BEAKER) (test qodx=7026) 7.35 Range 1.12 - 1.27CALCIUM, [id number] 15:38:00* Test Item Value Reference Range Comments CALCIUM IONIZED (BEAKER) (test whiu=928) 1.08 mmol/L 1.12-1.27 PH, BLOOD (BEAKER) (test lhhq=8404) 7.36 Range 1.12 - 1.27CALCIUM, [id number] 15:22:00* Test Item Value Reference Range Comments CALCIUM IONIZED (BEAKER) (test uwzs=619) 1.16 mmol/L 1.12-1.27 PH, BLOOD (BEAKER) (test sqlr=9097) 7.35 Range 1.12 - 1.27CALCIUM, [id number] 15:22:00* Test Item Value Reference Range Comments CALCIUM IONIZED (BEAKER) (test pbzz=396) 1.03 mmol/L 1.12-1.27 PH, BLOOD (BEAKER) (test zmts=7278) 7.36 Range 1.12 - 1.27CBC (HEMOGRAM ONLY)2016-12-09 14:53:00* Test Item Value Reference Range Comments WHITE BLOOD CELL COUNT (BEAKER) (test juwn=366) 6.6 K/ L 4.0-10.0 RED BLOOD CELL COUNT (BEAKER) (test adcu=780) 4.49 M/ L 4.00-5.00 HEMOGLOBIN (BEAKER) (test pubu=043) 14.7 GM/DL 12.0-15.0 HEMATOCRIT (BEAKER) (test ihon=482) 41.0 % 36.0-45.0 MEAN CORPUSCULAR VOLUME (BEAKER) (test tyui=450) 91.2 fL 82.0-99.0 MEAN CORPUSCULAR HEMOGLOBIN (BEAKER) (test rlqu=811) 32.7 pg 27.0-33.0 MEAN CORPUSCULAR HEMOGLOBIN CONC (BEAKER) (test bvbv=394) 35.9 GM/DL 32.0- 36.0 RED CELL DISTRIBUTION WIDTH (BEAKER) (test tnfp=843) 11.7 % 10.3-14.2 PLATELET COUNT (BEAKER) (test sxms=063) 196 K/CU MM 150-430 MEAN PLATELET VOLUME (BEAKER) (test phwd=229) 8.8 fL 6.5-10.5 NUCLEATED RED BLOOD CELLS (BEAKER) (test ebpe=486) 0 /100 WBC 0-0 0.00IMMUNOGLOBULIN G (IGG)2016-12-09 14:04:00* Test Item Value Reference Range Comments IMMUNOGLOBULIN G (IGG) (BEAKER) (test utdf=646) 555 mg/dL 540-1822 IMMUNOGLOBULIN M (IGM)2016-12-09 14:04:00* Test Item Value Reference Range Comments IMMUNOGLOBULIN M (IGM) (BEAKER) (test qdsw=370) 28 mg/dL 22-293 IMMUNOGLOBULIN A (IGA)2016-12-09 14:04:00* Test Item Value Reference Range Comments IMMUNOGLOBULIN A (IGA) (BEAKER) (test mard=547) 99 mg/dL 63-484 [id number] 13:46:00* Test Item Value Reference Range Comments FIBRINOGEN LEVEL (BEAKER) (test owyn=710) 220 mg/dl 225-434 CALCIUM, [id number] 15:47:00* Test Item Value Reference Range Comments CALCIUM IONIZED (BEAKER) (test rewi=477) 1.20 mmol/L 1.12-1.27 PH, BLOOD (BEAKER) (test xubn=0549) 7.38 Range 1.12 - 1.27CBC (HEMOGRAM ONLY)2016-12-06 15:25:00* Test Item Value Reference Range Comments WHITE BLOOD CELL COUNT (BEAKER) (test gvzv=885) 6.5 K/ L 4.0-10.0 RED BLOOD CELL COUNT (BEAKER) (test fdva=768) 4.47 M/ L 4.00-5.00 HEMOGLOBIN (BEAKER) (test hqmv=378) 14.4 GM/DL 12.0-15.0 HEMATOCRIT (BEAKER) (test uoez=809) 40.4 % 36.0-45.0 MEAN CORPUSCULAR VOLUME (BEAKER) (test frby=300) 90.4 fL 82.0-99.0 MEAN CORPUSCULAR HEMOGLOBIN (BEAKER) (test itns=404) 32.3 pg 27.0-33.0 MEAN CORPUSCULAR HEMOGLOBIN CONC (BEAKER) (test eyru=111) 35.7 GM/DL 32.0- 36.0 RED CELL DISTRIBUTION WIDTH (BEAKER) (test tvqv=105) 11.8 % 10.3-14.2 PLATELET COUNT (BEAKER) (test cios=754) 188 K/CU MM 150-430 MEAN PLATELET VOLUME (BEAKER) (test oobp=286) 8.7 fL 6.5-10.5 NUCLEATED RED BLOOD CELLS (BEAKER) (test yidt=196) 0 /100 WBC 0-0 0.00IMMUNOGLOBULIN A (IGA)2016-12-06 15:09:00* Test Item Value Reference Range Comments IMMUNOGLOBULIN A (IGA) (BEAKER) (test rzlm=779) 114 mg/dL 63-484 IMMUNOGLOBULIN G (IGG)2016-12-06 15:07:00* Test Item Value Reference Range Comments IMMUNOGLOBULIN G (IGG) (BEAKER) (test oaxw=844) 730 mg/dL 540-1822 IMMUNOGLOBULIN M (IGM)2016-12-06 15:07:00* Test Item Value Reference Range Comments IMMUNOGLOBULIN M (IGM) (BEAKER) (test fngu=681) 42 mg/dL 22-293 CALCIUM, [id number] 15:18:00* Test Item Value Reference Range Comments CALCIUM IONIZED (BEAKER) (test wqal=506) 1.18 mmol/L 1.12-1.27 PH, BLOOD (BEAKER) (test plkn=0921) 7.35 Range 1.12 - 1.27CALCIUM, [id number] 14:51:00* Test Item Value Reference Range Comments CALCIUM IONIZED (BEAKER) (test ttch=420) 1.10 mmol/L 1.12-1.27 PH, BLOOD (BEAKER) (test waea=1480) 7.37 Range 1.12 - 1.27CALCIUM, [id number] 15:42:00* Test Item Value Reference Range Comments CALCIUM IONIZED (BEAKER) (test wsfm=902) 1.11 mmol/L 1.12-1.27 PH, BLOOD (BEAKER) (test gdhu=5077) 7.36 Range 1.12 - 1.27CALCIUM, [id number] 15:12:00* Test Item Value Reference Range Comments CALCIUM IONIZED (BEAKER) (test ryne=103) 1.13 mmol/L 1.12-1.27 PH, BLOOD (BEAKER) (test faeh=4706) 7.37 Range 1.12 - 1.27CALCIUM, [id number] 15:12:00* Test Item Value Reference Range Comments CALCIUM IONIZED (BEAKER) (test pwij=105) 1.14 mmol/L 1.12-1.27 PH, BLOOD (BEAKER) (test fjxa=8945) 7.35 Range 1.12 - 1.27CBC (HEMOGRAM ONLY)2016-11-01 14:28:00* Test Item Value Reference Range Comments WHITE BLOOD CELL COUNT (BEAKER) (test bmnz=214) 7.4 K/ L 4.0-10.0 RED BLOOD CELL COUNT (BEAKER) (test wpnw=882) 4.32 M/ L 4.00-5.00 HEMOGLOBIN (BEAKER) (test rgkj=639) 15.2 GM/DL 12.0-15.0 HEMATOCRIT (BEAKER) (test rygb=106) 38.3 % 36.0-45.0 MEAN CORPUSCULAR VOLUME (BEAKER) (test nzcz=147) 88.6 fL 82.0-99.0 MEAN CORPUSCULAR HEMOGLOBIN (BEAKER) (test zjbt=633) 35.3 pg 27.0-33.0 MEAN CORPUSCULAR HEMOGLOBIN CONC (BEAKER) (test sbwk=279) 39.8 GM/DL 32.0- 36.0 RED CELL DISTRIBUTION WIDTH (BEAKER) (test dkyh=461) 13.4 % 10.3-14.2 PLATELET COUNT (BEAKER) (test znne=628) 185 K/CU MM 150-430 MEAN PLATELET VOLUME (BEAKER) (test tjcy=114) 10.0 fL 6.5-10.5 NUCLEATED RED BLOOD CELLS (BEAKER) (test qjdq=604) 0 /100 WBC 0-0 0.00IMMUNOGLOBULIN G (IGG)2016-11-01 14:17:00* Test Item Value Reference Range Comments IMMUNOGLOBULIN G (IGG) (BEAKER) (test tked=753) 703 mg/dL 540-1822 IMMUNOGLOBULIN M (IGM)2016-11-01 14:17:00* Test Item Value Reference Range Comments IMMUNOGLOBULIN M (IGM) (BEAKER) (test obtz=216) 47 mg/dL 22-293 IMMUNOGLOBULIN A (IGA)2016-11-01 14:17:00* Test Item Value Reference Range Comments IMMUNOGLOBULIN A (IGA) (BEAKER) (test xouz=574) 115 mg/dL 63-484 CALCIUM, [id number] 15:23:00* Test Item Value Reference Range Comments CALCIUM IONIZED (BEAKER) (test nnrp=765) 1.18 mmol/L 1.12-1.27 PH, BLOOD (BEAKER) (test dcyp=1748) 7.36 Range 1.12 - 1.27CALCIUM, [id number] 15:27:00* Test Item Value Reference Range Comments CALCIUM IONIZED (BEAKER) (test ribw=478) 1.20 mmol/L 1.12-1.27 PH, BLOOD (BEAKER) (test sziz=2315) 7.35 Range 1.12 - 1.27CBC (HEMOGRAM ONLY)2016-10-18 14:02:00* Test Item Value Reference Range Comments WHITE BLOOD CELL COUNT (BEAKER) (test tvel=205) 6.4 K/ L 4.0-10.0 RED BLOOD CELL COUNT (BEAKER) (test ntlf=256) 4.18 M/ L 4.00-5.00 HEMOGLOBIN (BEAKER) (test stcu=954) 14.2 GM/DL 12.0-15.0 HEMATOCRIT (BEAKER) (test cpad=259) 37.7 % 36.0-45.0 MEAN CORPUSCULAR VOLUME (BEAKER) (test tvmh=187) 90.3 fL 82.0-99.0 MEAN CORPUSCULAR HEMOGLOBIN (BEAKER) (test bnzp=527) 34.0 pg 27.0-33.0 MEAN CORPUSCULAR HEMOGLOBIN CONC (BEAKER) (test dmfv=367) 37.7 GM/DL 32.0- 36.0 RED CELL DISTRIBUTION WIDTH (BEAKER) (test rsuh=002) 12.8 % 10.3-14.2 PLATELET COUNT (BEAKER) (test eawm=343) 174 K/CU MM 150-430 MEAN PLATELET VOLUME (BEAKER) (test bjyu=685) 8.9 fL 6.5-10.5 NUCLEATED RED BLOOD CELLS (BEAKER) (test vele=365) 0 /100 WBC 0-0 0.00CALCIUM, [id number] 15:32:00* Test Item Value Reference Range Comments CALCIUM IONIZED (BEAKER) (test nnrd=517) 1.14 mmol/L 1.12-1.27 PH, BLOOD (BEAKER) (test getf=5088) 7.40 Range 1.12 - 1.27CBC (HEMOGRAM ONLY)2016-10-11 13:54:00* Test Item Value Reference Range Comments WHITE BLOOD CELL COUNT (BEAKER) (test hcew=710) 7.1 K/ L 4.0-10.0 RED BLOOD CELL COUNT (BEAKER) (test gaug=899) 3.99 M/ L 4.00-5.00 HEMOGLOBIN (BEAKER) (test mwig=044) 13.4 GM/DL 12.0-15.0 HEMATOCRIT (BEAKER) (test uqtl=957) 35.9 % 36.0-45.0 MEAN CORPUSCULAR VOLUME (BEAKER) (test gwzd=236) 90.1 fL 82.0-99.0 MEAN CORPUSCULAR HEMOGLOBIN (BEAKER) (test outv=107) 33.7 pg 27.0-33.0 MEAN CORPUSCULAR HEMOGLOBIN CONC (BEAKER) (test gwtr=455) 37.4 GM/DL 32.0- 36.0 RED CELL DISTRIBUTION WIDTH (BEAKER) (test nbke=857) 11.7 % 10.3-14.2 PLATELET COUNT (BEAKER) (test xptk=017) 152 K/CU MM 150-430 MEAN PLATELET VOLUME (BEAKER) (test ugaa=106) 8.4 fL 6.5-10.5 NUCLEATED RED BLOOD CELLS (BEAKER) (test ycsn=549) 0 /100 WBC 0-0 0.00CALCIUM, [id number] 15:28:00* Test Item Value Reference Range Comments CALCIUM IONIZED (BEAKER) (test azch=852) 1.16 mmol/L 1.12-1.27 PH, BLOOD (BEAKER) (test byoi=6932) 7.33 Range 1.12 - 1.27CALCIUM, [id number] 14:48:00* Test Item Value Reference Range Comments CALCIUM IONIZED (BEAKER) (test blmw=151) 1.19 mmol/L 1.12-1.27 PH, BLOOD (BEAKER) (test rcan=6607) 7.37 Range 1.12 - 1.27IMMUNOGLOBULIN G (IGG)2016-09-27 13:50:00* Test Item Value Reference Range Comments IMMUNOGLOBULIN G (IGG) (BEAKER) (test svrf=600) 664 mg/dL 540-1822 IMMUNOGLOBULIN M (IGM)2016-09-27 13:50:00* Test Item Value Reference Range Comments IMMUNOGLOBULIN M (IGM) (BEAKER) (test zsus=413) 42 mg/dL 22-293 IMMUNOGLOBULIN A (IGA)2016-09-27 13:50:00* Test Item Value Reference Range Comments IMMUNOGLOBULIN A (IGA) (BEAKER) (test udyc=190) 118 mg/dL 63-484 CBC (HEMOGRAM ONLY)2016-09-27 13:36:00* Test Item Value Reference Range Comments WHITE BLOOD CELL COUNT (BEAKER) (test muge=748) 5.2 K/ L 4.0-10.0 RED BLOOD CELL COUNT (BEAKER) (test qaeq=959) 4.07 M/ L 4.00-5.00 HEMOGLOBIN (BEAKER) (test yocz=924) 13.1 GM/DL 12.0-15.0 HEMATOCRIT (BEAKER) (test dces=212) 36.5 % 36.0-45.0 MEAN CORPUSCULAR VOLUME (BEAKER) (test ypbt=036) 89.7 fL 82.0-99.0 MEAN CORPUSCULAR HEMOGLOBIN (BEAKER) (test dbcp=670) 32.3 pg 27.0-33.0 MEAN CORPUSCULAR HEMOGLOBIN CONC (BEAKER) (test zxvn=900) 35.9 GM/DL 32.0- 36.0 RED CELL DISTRIBUTION WIDTH (BEAKER) (test oawc=973) 11.7 % 10.3-14.2 PLATELET COUNT (BEAKER) (test tuvo=626) 154 K/CU MM 150-430 MEAN PLATELET VOLUME (BEAKER) (test odfc=778) 8.7 fL 6.5-10.5 NUCLEATED RED BLOOD CELLS (BEAKER) (test opaz=996) 0 /100 WBC 0-0 0.00CALCIUM, [id number] 15:32:00* Test Item Value Reference Range Comments CALCIUM IONIZED (BEAKER) (test obaq=628) 1.19 mmol/L 1.12-1.27 PH, BLOOD (BEAKER) (test uewn=7278) 7.35 Range 1.12 - 1.27CALCIUM, [id number] 14:57:00* Test Item Value Reference Range Comments CALCIUM IONIZED (BEAKER) (test stzx=668) 1.15 mmol/L 1.12-1.27 PH, BLOOD (BEAKER) (test nzhc=1611) 7.36 Range 1.12 - 1.27CBC (HEMOGRAM ONLY)2016-09-13 14:07:00* Test Item Value Reference Range Comments WHITE BLOOD CELL COUNT (BEAKER) (test krdb=782) 6.9 K/ L 4.0-10.0 RED BLOOD CELL COUNT (BEAKER) (test cqkm=542) 3.94 M/ L 4.00-5.00 HEMOGLOBIN (BEAKER) (test hcfi=271) 12.8 GM/DL 12.0-15.0 HEMATOCRIT (BEAKER) (test pofy=463) 35.3 % 36.0-45.0 MEAN CORPUSCULAR VOLUME (BEAKER) (test npda=252) 89.5 fL 82.0-99.0 MEAN CORPUSCULAR HEMOGLOBIN (BEAKER) (test jhsb=330) 32.6 pg 27.0-33.0 MEAN CORPUSCULAR HEMOGLOBIN CONC (BEAKER) (test ncoj=401) 36.4 GM/DL 32.0- 36.0 RED CELL DISTRIBUTION WIDTH (BEAKER) (test hqyd=335) 13.5 % 10.3-14.2 PLATELET COUNT (BEAKER) (test tzim=623) 161 K/CU MM 150-430 MEAN PLATELET VOLUME (BEAKER) (test qnsd=956) 9.9 fL 6.5-10.5 NUCLEATED RED BLOOD CELLS (BEAKER) (test sutz=185) 3 /100 WBC 0-0 0.00CALCIUM, [id number] 15:21:00* Test Item Value Reference Range Comments CALCIUM IONIZED (BEAKER) (test mcla=492) 1.14 mmol/L 1.12-1.27 PH, BLOOD (BEAKER) (test muay=7879) 7.35 Range 1.12 - 1.27CALCIUM, [id number] 15:53:00* Test Item Value Reference Range Comments CALCIUM IONIZED (BEAKER) (test xtjn=255) 1.19 mmol/L 1.12-1.27 PH, BLOOD (BEAKER) (test bsxl=1060) 7.35 Range 1.12 - 1.27CALCIUM, [id number] 15:35:00* Test Item Value Reference Range Comments CALCIUM IONIZED (BEAKER) (test mqbq=515) 1.15 mmol/L 1.12-1.27 PH, BLOOD (BEAKER) (test pscb=9099) 7.38 Range 1.12 - 1.27
[2017-08-25] MEDS ORDERED: ULTRAM50 MG PO (15:18)
[2017-08-25] MEDS ORDERED: LOVENOX60 MG/0.6 SC (16:22)
[2017-08-25] MEDS ORDERED: PEPCID20 MG (16:29)
[2017-08-25] MEDS ORDERED: PREDNISONE10 MG PO (16:29)
[2017-08-25] MEDS ORDERED: ASPIRIN81 MG (16:30)
== END 2017-08-25 15:30 | disposition home or self-care (01) ==
LOC: FSED 14:18
DX: S92.354A Nondisplaced fracture of fifth metatarsal bone, right foot, initial encounter for closed fracture (principal); W18.39XA Other fall on same level, initial encounter; Y92.008 Other place in unspecified non-institutional (private) residence as the place of occurrence of the external cause
CPT/HCPCS: 99283